=== PATIENT | female | born 2005 | race Two or more races ===

== ENCOUNTER 2024-12-20 23:16 | Emergency (ER) | payer BC, SELFPAY ==
[2024-12-20 23:17] VITALS: BMI 39.4
[2024-12-20 23:25] VITALS: BP 135/91; PULSE 70; RESP 18; TEMP 37.1; O2SAT 98
[2024-12-21 00:20] LABS: Collection Type, Urine Clean Catch; Squamous Epithelial Cell,Urine 0 /hpf (0-5)
[2024-12-21 00:25] LABS: HCG Qualitative,Urine Negative
[2024-12-21 00:26] LABS: Bilirubin,Urine Negative (Negative); Blood,Urine Negative (Negative); Clarity,Urine Clear (Clear/Hazy); Color,Urine Colorless (Lt Yel-Yel); Culture Indicated,Urine Not Indicated; Glucose, Urine Negative (Negative); Ketones,Urine Negative (Negative); Leukocyte Esterase,Urine Negative (Negative); Nitrite,Urine Negative (Negative); PH,Urine 6.5 (5.0-7.0); Protein,Urine Negative (Neg - Trace); RBC,Urine < 1 /hpf (0-3); Specific Gravity,Urine 1.009 (1.001-1.035); Urobilinogen,Urine Negative mg/dL (0.0-1.0); WBC,Urine < 1 /hpf (0-5)
[2024-12-21 00:35] LABS: Amphetamine/Methamp Scrn,U Negative (Negative); Barbiturate Screen,Urine Negative (Negative); Benzodiazepines Screen,Urine Negative (Negative); Benzoylecgonine Screen, Ur Negative (Negative); Fentanyl Screen,Urine Negative (Negative); Opiate Screen,Urine Negative (Negative); THC Screen,Urine Positive (Negative)
--- NOTE | 2024-12-21 01:59 | PRELIM_ITS ---
Pelvic ultrasound (transabdominal and transvaginal). December 21, 2024 0035 hours Clinical history: Left pelvic pain Technique: Real-time, grayscale, transabdominal and transvaginal pelvic ultrasound was performed using Duplex scanning including arterial inflow, venous outflow, color and spectral Doppler. Comparison: No prior study is available for comparison. Findings: The uterus is normal in size measuring 7 x 2.7 x 4.6 cm. The endometrium is unremarkable and measures 0.8 cm. The right ovary measures 3.6 x 1.6 x 2.2 cm and is unremarkable. There is anechoic structure in the left adnexa superior to the urinary bladder measuring 9 x 5.1 x 7.5 cm. The left ovary is not visualized. The right ovary demonstrate color flow and spectral waveforms on Doppler evaluation. There is no free fluid on the submitted images. Impression: Anechoic structure in the left adnexa as described, the possibilities include left ovarian versus paraovarian cyst.Recommend follow-up. Nonvisualized left ovary. Other findings as described above. Report Electronically Signed By: Ben Camarena 12/21/2024 1:58:46 AM [EST]
--- NOTE | 2024-12-21 02:29 | EDNOTE_ITS ---
ED Female Urogenital RME/HPI General Chief complaint: Abdominal Pain Stated complaint: LEFT LOWER ABD PAIN Time Seen by Provider: 12/20/24 23:38 Arrival date/time: 12/20/24 23:16 19F with no significant PMH presents to ED with no significant PMH presents to ED with several days of L pelvic pain and non-bloody diarrhea. Limitations: no limitations Related Data Allergies Allergy/AdvReac Type Severity Reaction Status Date / Time No Known Allergies Allergy Verified 12/20/24 23:17 Review of Systems Review of Systems Systems Reviewed: All systems reviewed, normal except as documented Constitutional Constitutional: Reports system reviewed and no additional complaints, except as documented, Denies fever(s) and Denies headache(s) ENT Ears, Nose, Mouth, and Throat: Denies disequilibrium and Denies headache(s) Cardiovascular Cardiovascular: Reports system reviewed and no additional complaints, except as documented, Denies chest pain and Denies dyspnea Respiratory Respiratory: Reports system reviewed and no additional complaints, except as documented, Denies cough and Denies dyspnea Gastrointestinal Gastrointestinal: Reports system reviewed and no additional complaints, except as documented, Reports as per HPI, Denies abdominal pain, Reports diarrhea, Denies nausea and Denies vomiting Genitourinary Genitourinary: Reports as per HPI and Reports pelvic pain Neurologic Neurologic: Reports system reviewed and no additional complaints, except as documented, Denies confusion, Denies disequilibrium and Denies headache(s) Psychiatric Psychiatric: Denies confusion Past Medical History Social History SMOKING STATUS: Never smoker ED Exam General Limitations: Present no limitations General appearance: Present alert and in no apparent distress Head Head exam: Present atraumatic Eye Eye exam: Present normal appearance, PERRL and EOMI ENT ENT exam: Present normal exam, normal oropharynx and mucous membranes moist Neck Neck exam: Present normal inspection, full ROM and trachea midline Chest Chest inspection: Present normal inspection and symmetric chest wall rise Respiratory Respiratory exam: Present normal lung sounds bilaterally Cardiovascular Cardiovascular exam: Present regular rate, normal rhythm and normal heart sounds Abdominal Exam Abdominal exam: Present soft and normal bowel sounds Extremities Exam Extremities exam: Present normal inspection and full ROM Back Exam Back exam: Present normal inspection and full ROM Neurological Exam Neurological exam: Present alert, oriented X3 and CN II-XII intact Psychiatric Psychiatric exam: Present normal affect and normal mood Skin Skin exam: Present warm, dry, intact and normal color Course Quality Measures none Orders Category Date Time Status US pelvic complete Stat Exams 12/21/24 23:39 Taken Drug Screen,Urine Stat Lab 12/20/24 23:59 Completed HCG Qualitative,Urine Stat Lab 12/20/24 23:59 Completed Urinalysis, C/S if Indicated Stat Lab 12/20/24 23:59 Completed Vital Signs Vital signs: Vital Signs Temperature 98.7 F 12/20/24 23:25 Pulse Rate 70 12/20/24 23:25 Respiratory Rate 18 12/20/24 23:25 Blood Pressure 135/91 H 12/20/24 23:25 Pulse Oximetry (%) 98 12/20/24 23:25 Oxygen Delivery Method Room Air 12/20/24 23:25 O2 at 98% on RA and WNLs Urogenital - Female MDM Narrative MDM Narrative:: 19F with no significant PMH presents to ED with no significant PMH presents to ED with several days of L pelvic pain and non-bloody diarrhea. Physical exam reveals no ab tenderness. Patient is afebrile, calm, and alert. UA clean. HCG neg. Marijuana neg. US could not find L-ovary, but there is a large 9 cm mass in L adnexal region. Patient did not want to wait until MRI in the AM. Patient AMA'd. Counseled to return for MRI w/ contrast in AM to better visualize mass in pelvis. Patient data External records reviewed:: None Clinical information provided by:: patient Social determinants that could affect healthcare access:: none Patient has the following chronic illnesses:: none How is presenting disease/condition affected by chronic disease/condition?: no chronic disease Evaluation data The following diagnostics were reviewed and interpreted by me:: lab results and radiology exam(s) Lab and/or radiology exams considered but not ordered:: ordered Interpretation Summary: above Medications / Prescriptions Medications or Prescriptions considered but not ordered:: not ordered Medication administrations:: n/a Consultations Consultation(s) initiated? (list below): No Diagnosis Urogenital Female Differential Diagnosis: urinary tract infection, bacterial vaginosis, trichomoniasis, cervicitis, ovarian cyst, vaginitis, ruptured ovarian cyst, cyst of Bartholin's gland, cystitis, dysmenorrhea and other (pelvic mass) Most likely diagnosis given after review of the tests above:: pelvic mass Admission Indicated Admission indicated?: not indicated Admission Request Was there a request for admission?: No Disposition Plan Disposition Plan: Discharge Discharge Attestation Discharge Attestation: The patient and all family members were given an opportunity to ask questions and understood the discharge instructions. Discharge instructions specifically effects, indications for sooner follow up or return to the emergency department, and the expected course of current diagnosis. Patient condition: Stable Discharge Plan Plan Patient Disposition: Left Against Medical Advice Prescriptions/Referrals Referrals: No Primary/Family,Physician [Primary Care Provider] - In 1 week Problem List Clinical Impression: Pelvic mass Patient/Caregiver Discharge Instructions Print Language: Greenlandic PA/DATA ENTRY SPECIALIST Supervising Physician PA/DATA ENTRY SPECIALIST Supervising Physician: Dr. Mehta
--- NOTE | 2024-12-21 02:40 | PC.NURSE ---
PATIENT LEFT AMA. PATIENT DOES NOT WANT TO WAIT TILL THE MORNING FOR MRI AND PREFERS TO GO HOME AND REST. PATIENT STATES SHE WILL RETURN IN THE MORNING FOR THE MRI. RISK OF LEAVING AMA EXPLAINED TO PATIENT AND FAMILY MEMBER. PATIENT VERBALIZED UNDERSTANDING. PATIENT GCS 15.
--- NOTE | 2024-12-21 23:39 | XR_ITS ---
Examination: Pelvic ultrasound, transabdominal, complete Technique: Transabdominal ultrasound of the pelvis performed using grayscale imaging Date and time of exam: December 21, 2024 0035 hours INDICATIONS: Onset of pelvic pain today FINDINGS: Uterus 7.1 cm endometrial side 0.8 cm No solid uterine mass, no intrauterine gestation Cystic mass above the bladder and in the left adnexal region 8.9 x 7.5 x 5.2 cm Right ovary 3.6 cm arterial flow Left ovary not visualized IMPRESSION: Cystic mass in the left adnexal region 8.9 x 7.5 x 5.2 cm, most likely simple left ovarian cyst
== END 2024-12-21 02:41 | disposition left against medical advice (07) ==
PROVIDERS: Physician Assistant; Emergency Provider Emergency Medicine
DX: R19.04 Left lower quadrant abdominal swelling, mass and lump (principal); Z53.29 Procedure and treatment not carried out because of patient's decision for other reasons
CPT/HCPCS: 76856; 80307; 81001; 81025; 99284; J3490

== ENCOUNTER 2024-12-21 07:57 | Day surgery (SDC) | payer BC, SELFPAY ==
[2024-12-21] VITALS (8 sets, daily range): BP systolic 112–137; BP diastolic 68–104; PULSE 63–91; RESP 15–20; TEMP 36.2–36.8; O2SAT 97–100; BMI 39.4
--- NOTE | 2024-12-21 08:33 | EDNOTE_ITS ---
ED Female Urogenital RME/HPI General Chief complaint: Urogenital-Female Stated complaint: Mass on left ovary needs MRI Time Seen by Provider: 12/21/24 07:58 Arrival date/time: 12/21/24 07:57 Limitations: no limitations RME / HPI RME / HPI Narrative: 19-year-old female with no reported past medical history presents for evaluation of left lower quadrant pain. Patient was seen in the ED yesterday and had an ultrasound performed which showed a 8.9 x 7.5 x 5.2 cm left ovarian cyst with no arterial blood flow visualized. Patient was discharged with plan to return to the ED in the a.m. for MRI with contrast to further evaluate left ovarian cyst. Patient reports loose stools. She denies vaginal bleeding, fever, nausea, vomiting, chest pain, shortness of breath, hematochezia. LNMP x 2 weeks ago. Patient is not on oral contraceptives. Denies history of similar symptoms. Radiation: LLQ Severity: moderate Quality: sharp Duration: intermittent Relieving factors: none Exacerbating factors: none : no Last Menstrual Period: 12/07/24 EDC: 09/13/25 Related Data Allergies Allergy/AdvReac Type Severity Reaction Status Date / Time No Known Allergies Allergy Verified 12/21/24 08:02 Review of Systems Constitutional Constitutional: Denies chills, Denies fatigue, Denies fever(s) and Denies headache(s) Eyes Eyes: Denies blurry vision and Denies change in vision ENT Ears, Nose, Mouth, and Throat: Denies dizziness, Denies headache(s) and Denies neck pain Cardiovascular Cardiovascular: Denies chest pain and Denies dyspnea Respiratory Respiratory: Denies cough, Denies dyspnea and Denies wheezing Gastrointestinal Gastrointestinal: Reports abdominal pain, Denies constipation, Denies cramping, Reports diarrhea, Denies hematemesis, Denies nausea and Denies vomiting Genitourinary Genitourinary: Denies abnormal vaginal bleeding and Denies dysuria Musculoskeletal Musculoskeletal: Denies back pain, Denies myalgias and Denies neck pain Integumentary/Breasts Skin/Breast: Denies lesions Neurologic Neurologic: Denies confusion, Denies dizziness and Denies headache(s) Psychiatric Psychiatric: Denies confusion Endocrine Endocrine: Denies fatigue Allergic/Immunologic Allergic/Immunologic: Denies wheezing Past Medical History Social History SMOKING STATUS: Current every day smoker ED Exam General Limitations: Present no limitations General appearance: Present alert and in no apparent distress Head Head exam: Present atraumatic and normocephalic Eye Eye exam: Present normal appearance and EOMI; Absent scleral icterus ENT ENT exam: Present normal oropharynx and mucous membranes moist Neck Neck exam: Present normal inspection and full ROM Chest Chest inspection: Present normal inspection and symmetric chest wall rise Respiratory Respiratory exam: Present normal lung sounds bilaterally; Absent wheezes Cardiovascular Cardiovascular exam: Present regular rate and +S1 Abdominal Exam Abdominal exam: Present soft, tenderness and normal bowel sounds; Absent distention, guarding, rebound or rigidity Abdominal tenderness: Present LLQ Extremities Exam Extremities exam: Present normal inspection and full ROM Back Exam Back exam: Present normal inspection and full ROM; Absent CVA tenderness (R) or CVA tenderness (L) Psychiatric Psychiatric exam: Present normal affect Skin Skin exam: Present warm, dry and normal color Course Quality Measures none Orders Category Date Time Status Insert IV NOW Care 12/21/24 09:10 Active NPO NOW Care 12/21/24 09:11 Ordered Diet NPO (NOW) Diet 12/21/24 09:11 Ordered Vital Signs Vital signs: Vital Signs Temperature 98.3 F 12/21/24 08:09 Pulse Rate 91 12/21/24 08:09 Respiratory Rate 18 12/21/24 08:09 Blood Pressure 131/85 H 12/21/24 08:09 Pulse Oximetry (%) 98 12/21/24 08:09 Oxygen Delivery Method Room Air 12/21/24 08:09 Pulse ox 98% on room air, within normal limits. Urogenital - Female MDM Narrative MDM Narrative:: 19-year-old female with x 2 days of left lower quadrant pain. Prior workup significant for large left-sided ovarian simple cyst with no flow visualized. hCG negative therefore less concern for ectopic at this time. Patient will be admitted by Dr. Aranda OBGYN stationary engineer supervisor, for further evaluation and treatment. Patient data External records reviewed:: [facility] previous records Clinical information provided by:: patient Social determinants that could affect healthcare access:: none Patient has the following chronic illnesses:: None reported. How is presenting disease/condition affected by chronic disease/condition?: no chronic disease Evaluation data The following diagnostics were reviewed and interpreted by me:: other (specify) Lab and/or radiology exams considered but not ordered:: Considered not ordered. Interpretation Summary: Considered not ordered. Medications / Prescriptions Medications or Prescriptions considered but not ordered:: Considered not ordered. Medication administrations:: Considered not ordered. Consultations Consultation(s) initiated? (list below): Yes Consultation #1 (Physician, Specialty, Details): Spoke with VINAY Nunn stationary engineer supervisor, regarding US read from yesterday showing L ovarian cyst with arterial flow. He kindly agreed to evaluate the pt in the department. Time: 09:16 Consultation #2 (Physician, Specialty, Details): Dr. Aranda has kindly agreed to admit this patient to r/o ovarian torsion. Diagnosis Urogenital Female Differential Diagnosis: cervicitis, ruptured ovarian cyst and other (Ovarian torsion.) Most likely diagnosis given after review of the tests above:: Left-sided ovarian cyst. Admission Indicated Admission indicated?: indicated Admission Request Was there a request for admission?: Yes Admission Attestation Admission request attestation: Discussed case with VINAY Lisa from Hospitalist service regarding admission. Discussed patients ED course, exam findings, labs, and radiology results. The Hospitalist [agrees to accept the patient for admission. Disposition Plan Disposition Plan: Admit Discharge Plan Plan Patient Disposition: Admit Acute Care w/in Hospital Discharge Disposition comment: stable Prescriptions/Referrals Referrals: No Primary/Family,Physician [Primary Care Provider] - In 1 week Problem List Clinical Impression: Pelvic mass, Left ovarian cyst Patient/Caregiver Discharge Instructions Print Language: Latvian Stand Alone Forms: Amarilis Award Info., Patient Portal Info Letter PA/VENKATA Supervising Physician PA/VENKATA Supervising Physician: Dr. Rubin
--- NOTE | 2024-12-21 09:25 | ESHP_ITS ---
Documentation for date of: 12/21/24 MANAGER BUDGET - HPI History of Present Illness History of present illness: Ms. LOCKE is a 19 year old female 0 who presented to the emergency room on December 20 complaining of severe left lower quadrant pain. The patient says the pain started on December 19 and has progressively worsened. She denies any nausea vomiting or diarrhea. She reports regular bowel movements.. She denies any dysuria or urinary frequency or flank pain. Her urine test is negative. UA negative. Review of Systems Review of Systems Narrative Review of Systems: She denies any chest pain palpitations cough fever shortness of breath or lower extremity pain Past Medical History Family History OTHER FAMILY HX: Denies Surgical History OTHER SURGICAL HX: Denies Social History SOCIAL: Denies any alcohol drugs or smoking Past Medical History Comments PMH COMMENT: Denies Meds Home Medications and Allergies Allergies Allergy/AdvReac Type Severity Reaction Status Date / Time No Known Allergies Allergy Verified 12/21/24 08:02 Exam - MANAGER BUDGET Vital Signs Temp Pulse Resp BP Pulse Ox O2 Del Method 98.3 F 91 18 131/85 H 98 Room Air 12/21/24 08:09 12/21/24 08:09 12/21/24 08:09 12/21/24 08:09 12/21/24 08:09 12/21/24 08:09 Routine HEENT Exam Comments: Oropharynx and sclera clear Routine Respiratory Exam Comments: Clear to auscultation bilaterally Routine Cardiovascular Exam Comments: Regular rate and rhythm Routine Abdominal Exam Comments: Soft and nondistended . Mild left lower quadrant tenderness, no guarding rebound or rigidity Routine Extremities Exam Comments: Nontender or edema Routine Skin Exam Comments: No gross rashes or lesions Routine Neurological Exam Comments: No focal deficit MANAGER BUDGET - Results Impressions Impression: Left adnexal mass Severe pelvic pain Possible left adnexal torsion Diagnostic laparoscopy, left adnexal cystectomy, possible laparotomy, possible left oophorectomy, possible left salpingectomy. Informed consent was obtained. The patient was made aware of the risks, complications, alternatives, and benefits of the proposed procedure and she agrees. She was made aware of the risks of injury to bowel bladder uterus ureters, blood clots in the deep veins of the legs and lungs, anesthesia complications, bleeding leading to blood transfusion, pelvic infection wound infection, reoperation to repair injury to internal organs, possibility that a laparotomy needs to be performed to complete the procedure, possibility that due to severe scar tissue or technical difficulties the procedure may not be able to be completed. I discussed with the patient at length in detail the risks and complications alternatives and benefits and she verbalized understanding. Quality Measures Quality Measures VTE prophylaxis and none
[2024-12-21] MEDS: RINGERS LACTATED 1000 ML 1,000 ML 30 ML IV (09:36)
[2024-12-21 10:14] LABS: Basophils # (Auto) 0.1 Thou/mm3 (0.0-0.2); Basophils % (Auto) 1 % (0-2.5); Eosinophils % (Auto) 0 % (0-10); Hematocrit 43.6 % (36.0-46.0); Hemoglobin 14.6 g/dL (12.0-16.0); Immature Granulocytes % (Auto) 0 % (0-0); Immature Granulocytes Auto 0.03 Thou/mm3 (0.00-0.00); Lymphocytes # (Auto) 2.6 Thou/mm3 (1.0-4.8); Lymphocytes % (Auto) 34 % (10-50); Mean Corpuscular HGB Conc 33.5 g/dl (31.0-37.0); Mean Corpuscular Volume 87 fL (80-100); Monocytes # (Auto) 0.7 Thou/mm3 (0.0-0.8); Monocytes % (Auto) 9 % (0-12); Neutrophils # (Auto) 4.3 Thou/mm3 (1.8-7.7); Neutrophils % (Auto) 56 % (37-80); Nucleated Red Blood Cell % 0 /100 WBC (0); Platelet Count 232 Thou/mm3 (140-440); RDW Standard Deviation 40.2 fL (36.4-46.3); Red Blood Count 5.04 Miln/mm3 (4.00-5.20); White Blood Count 7.7 Thou/mm3 (4.5-11.0)
[2024-12-21 10:31] LABS: Alanine Aminotransferase 17 U/L (10-49); Albumin, Serum 4.8 gm/dL (3.5-5.0); Albumin/Globulin Ratio 1.7 (1.2-2.2); Alkaline Phosphatase 61 U/L (46-116); Anion Gap 8 (7-16); Aspartate Amino Transferase 24 U/L (0-34); BUN/Creatinine Ratio 11 Ratio (12-20); Beta HCG,Quantitative < 1 mIU/mL (<5.0); Bilirubin,Total 0.6 mg/dL (0.3-1.2); Blood Urea Nitrogen 10 mg/dL (9-23); Calcium 9.4 mg/dL (8.3-10.6); Calcium (Corrected) 9.4 mg/dL (8.5-10.1); Carbon Dioxide 26.3 mMol/L (20.0-31.0); Chloride 105 mMol/L (98-107); Creatinine (Component) 0.9 mg/dL (0.6-1.3); Estimated Creatinine Clearance 117.3 mL/min (>60); Globulin 2.9 gm/dL (2.3-3.5); Glucose 102 mg/dL (74-106); Osmolality,Calculated 276 (275-295); Potassium 3.9 mMol/L (3.4-5.1); Sodium 139 mMol/L (136-145); Total Protein 7.7 gm/dL (5.7-8.2); eGFR > 60 See Note
[2024-12-21 10:38] LABS: Partial Thromboplastin Time 31.2 Seconds (22.0-36.0); Prothrombin Time 10.6 Seconds (9.0-12.2)
--- NOTE | 2024-12-21 15:30 | SUR.PHASEI ---
pt received from OR in recovery bay 5. pt asleep but responds to voice, breathing unlabored on oxymask 8l. v/s stable. pt dressing to abd x3 cdi. report received from Dr. Clemens and Diogenes HARDING.
[2024-12-21] MEDS: HYDROmorphone INJ 2 MG/ML VIAL 0.4 MG IVP (15:36)
[2024-12-21] MEDS: ACETAMINOPHEN IVPB 1,000 MG/100 ML VIAL 250 MG IV (15:36)
[2024-12-21] MEDS: fentaNYL CIT INJ 50 mCg/ML AMP 2ML 25 MCG IVP (15:58)
--- NOTE | 2024-12-21 16:31 | SUR.PHASEII ---
pt awake and alert, breathing unlabored on room air. v/s stable. pt dressing to abd x3 cdi. pt able to ambulate to wheelchair with steady gait. d/c instructions given with s/o Rubio in room, all questions answered. pt d/c via wheelchair with all belongings.
--- NOTE | 2024-12-22 07:50 | ESOP_ITS ---
RE: LEANNE LOCKE : 2005 DATE OF OPERATION: 12/18/2024 PREOPERATIVE DIAGNOSIS: Left ovarian cyst. POSTOPERATIVE DIAGNOSIS: Left ovarian cyst. PROCEDURES PERFORMED: Diagnostic laparoscopy and left ovarian cystectomy. SURGEON: Miles Aranda DO. PROOF PLATE MAKER: ANTHONY Gaona. ANESTHESIA: General. ANESTHESIOLOGIST: Niranjan Clemens MD. ESTIMATED BLOOD LOSS: 20 mL. COMPLICATIONS: None. COUNTS: Correct. PATHOLOGY: Left ovarian cyst. FINDINGS: An 8 x 9 x 8 cm left ovarian cyst containing serous fluid. DESCRIPTION OF PROCEDURE: After proper informed consent was obtained and the patient was made aware of the risks, complications, alternatives, and benefits of the proposed procedure, she was taken to the operating room where she underwent induction of general anesthesia. She was placed in dorsal lithotomy position. She was prepped and draped in the usual sterile fashion. A timeout was performed. A uterine manipulator was placed. Attention was then turned to the abdomen where the physician regowned and gloved and a 5 mm incision was made in the umbilical fold. With tenting up to the abdomen, a Veress needle was inserted. Saline confirmed intra-abdominal placement. An artificial pneumoperitoneum was created to 12 mmHg. The Veress needle was then removed and a 5 mm trocar was inserted. The laparoscope connected to the video camera was then utilized to visualize the pelvis. The above findings were noted. A second incision was made in the midline 2 cm above the symphysis pubis. Through this 10 mm incision, a 10 mm trocar was inserted under direct visualization of the laparoscope. Attention was then turned to the left lower quadrant and a 5 mm incision was made. Through this 5 mm incision, a 5 mm trocar was inserted under direct visualization of the laparoscope. Using the 1136 [employer]onic scalpel and the Gomez and Gegonzalo grasper, the left ovarian cyst was from the left fallopian tube and then the left ovarian cystectomy was performed. Specimen was removed through the Endopouch, complete and intact and submitted to the pathologist. The pelvis was copiously irrigated with warm normal saline solution. There was no bleeding at the end of the procedure. All instruments were removed from the abdomen after the carbon dioxide was removed from the peritoneal cavity. The incisions were closed with 4-0 Monocryl and covered with Marcaine 0.5% plain and covered with Dermabond. The incisions were also closed with 4-0 Monocryl. Attention was then turned to the vagina where the uterine manipulator was removed. The patient was reversed from general anesthesia in supine position and transferred to recovery room in stable condition. She tolerated the procedure well. All counts were correct. I discussed with the patient's family the nature of her condition, the intraoperative findings, and expectation for recovery. All questions answered. DT: 15:37:56 TT: 18:51:00 Ref: [id number] - TID: [id number]
== END 2024-12-21 16:31 | disposition home or self-care (01) ==
LOC: SERX 13:35 → SASD 13:39
PROVIDERS: Emergency Provider Emergency Medicine; Referring Provider Specialist; Visit Provider Specialist
PROC: (CPT 58662; principal; 2024-12-21 13:00)
DX: D27.1 Benign neoplasm of left ovary (principal); Z32.02 Encounter for pregnancy test, result negative
CPT/HCPCS: 58662; 36415; 80053; 84702; 85025; 85610; 85730; 86850; 86900; 86901; 99285; A4217; A4649; J0131; J0690; J1100; J1171; J1885; J2250; J2405; J2704; J3010; J3490; J7120